=== PATIENT | male | born 1940 | race Caucasian/White ===

== ENCOUNTER 2020-08-17 11:33 | Inpatient (IN) ==
[2020-08-17] MEDS ORDERED: DEXTROSE 50% 25 GM/50 ML VIAL IV PRN (12:36)
[2020-08-17] MEDS ORDERED: GLUCAGON 1 MG VIAL IM PRN (12:36)
[2020-08-17] MEDS ORDERED: SODIUM CHLORIDE 0.9% 1,000 ML IV SCH (13:00)
[2020-08-17] MEDS ORDERED: HEPARIN DRIP 25,000 UNITS/500 ML PREMIX IV SCH (15:30)
[2020-08-17 15:40] LABS: Basophils # 0.1 10*3/uL (0.0-0.2); Basophils % 0.6 % (0.0-0.8); Eosinophils # 0.2 10*3/uL (0.0-0.87); Hematocrit 35.6 VOL% (42.0-52.0); Immature Granulocytes % 0.5 %; Immature Granulocytes Absolute 0.04 #; Lymphocytes # 1.8 10*3/uL (1.4-4.0); Lymphocytes % 21.5 % (21.2-54.2); Mean Corpuscular HGB Conc 33.7 GM/DL (32-36); Mean Corpuscular Volume 90.8 FL (87-102); Mean Platelet Volume 9.6 FL (9.6-12.0); Monocytes % 8.7 % (1.7-12.7); Neutrophils % 66.7 % (38.7-73.9); Platelet Count 312 T/CUMM (130-400); Red Blood Count 3.92 MC/CUMM (3.8-5.5); Red Cell Distribution Width 12.7 % (9.3-17.3); White Blood Count 8.4 T/CUMM (4-12)
[2020-08-17 16:15] LABS: Bilirubin,Total 0.6 MG/DL (0.2-1.0); Calcium 8.6 MG/DL (8.5-10.1); Osmolality,Calculated 267.5 MOS/KG (273-304); Total Protein 6.8 G/DL (6.4-8.3)
[2020-08-17] MEDS: CHLORHEXIDINE 4% SOLN 118 ML BOTTLE TOP SCH ×2 (17:54→21:56)
[2020-08-17 18:07] LABS: ABG Base Excess 0.5 MMOL/L (-2.5-2.5); ABG HCO3 24.8 MMOL/L (20-26); ABG Oxygen Saturation 95.4 % (95-100); ABG PCO2 37.4 MM HG (35-48); ABG PH 7.426 (7.35-7.45); ABG PO2 75.6 MM HG (80-95); ABG TCO2 21.7 MMOL/L (23-27); Allen Test Positive; Pt O2 Delivery Device Room Air
[2020-08-17] MEDS ORDERED: DIAZEPAM 5 MG TABLET PO ONE (20:30)
[2020-08-17] MEDS ORDERED: PANTOPRAZOLE 40 MG TABLET PO ONE (20:30)
[2020-08-17] MEDS: CHLORHEXIDINE 0.12% ORAL RINSE 60 ML BOTTLE SWISH/SPIT SCH (21:55)
[2020-08-17] MEDS: METOPROLOL TARTRATE 25 MG TABLET PO SCH (21:55)
[2020-08-18] MEDS ORDERED: PAPAVERINE 60 MG/2 ML VIAL ONE (04:22)
[2020-08-18] MEDS ORDERED: VANCOMYCIN 1,000 MG VIAL ONE (04:23)
[2020-08-18] MEDS: CHLORHEXIDINE 4% SOLN 118 ML BOTTLE TOP SCH ×2 (04:30→09:10)
[2020-08-18] MEDS ORDERED: DIAZEPAM 5 MG TABLET ONE (05:41)
[2020-08-18] MEDS ORDERED: PANTOPRAZOLE 40 MG VIAL IV ONE (05:42)
[2020-08-18] MEDS ORDERED: PANTOPRAZOLE 40 MG TABLET PO ONE (05:48)
[2020-08-18] MEDS ORDERED: SUFentanil 250 MCG/5 ML AMP ONE (05:54)
[2020-08-18] MEDS ORDERED: MIDAZOLAM 10 MG/2 ML VIAL ONE (05:55)
[2020-08-18] MEDS ORDERED: CEFUROXIME INJ 1,500 MG in SODIUM CHLORIDE 0.9% 100 ML IV ONE (06:30)
[2020-08-18 07:41] LABS: ABG Base Excess 0.9 MMOL/L (-2.5-2.5); ABG HCO3 25.2 MMOL/L (20-26); ABG PCO2 35.7 MM HG (35-48); ABG PH 7.445 (7.35-7.45); ABG TCO2 21.9 MMOL/L (23-27); Glucose Heart Surgery 107 MG/DL (74-106); Hematocrit Heart Surgery 34.6 PERCENT (42-52); Hemoglobin Heart Surgery 11.2 G/DL (14.0-18.0); Ionized Calcium Arterial 1.19 MMOL/L (1.21-1.46); PCO2 Patient Temp Arterial 35.7 MMHG; PH Patient Temp Arterial 7.445; Patient Temperature 37 CELCIUS; Sodium Heart/CVR 132 MMOL/L (135-145)
[2020-08-18] MEDS ORDERED: NITROPRUSSIDE 50 MG/2 ML VIAL ONE (07:54)
[2020-08-18] MEDS ORDERED: SODIUM BICARBONATE 50 MEQ/50 ML VIAL IV ONE ×2 (07:54→10:19)
[2020-08-18] MEDS ORDERED: PHENYLEPHRINE DRIP 40 MG/250 ML PREMIX IV ONE (07:55)
[2020-08-18] MEDS ORDERED: POTASSIUM CHLORIDE RIDER 100 ML IV ONE (07:55)
[2020-08-18] MEDS ORDERED: CALCIUM CHLORIDE 1,000 MG/10 ML SYRINGE IV ONE (07:55)
[2020-08-18] MEDS ORDERED: ALBUMIN 5% 12.5 GM/250 ML VIAL IV ONE ×2 (07:56→07:57)
[2020-08-18 08:09] LABS: Bilirubin,Urine Negative (Negative); Blood, Urine Negative (Negative); Glucose,Urine (UA) Negative (Negative); Hyaline Casts,Urine 1 /LPF (0-3); Ketones,Urine Negative (Negative); Nitrite,Urine Negative (Negative); Protein,Urine Negative; RBC,Urine 2 /HPF (0-4); Urine Appearance CLEAR (Clear); Urine Color Yellow (Yellow); Urine Specific Gravity 1.013 (1.001-1.035); Urine Urobilinogen < 2.0 EU/DL (0.2-1.0); WBC,Urine 1 /HPF (0-6)
[2020-08-18] MEDS ORDERED: NITROGLYCERIN DRIP 50 MG/250 ML BOTTLE IV ONE (08:52)
[2020-08-18] MEDS ORDERED: HEPARIN/NACL 0.9% 2 UNITS/ML 500 ML IV ONE (08:52)
[2020-08-18 08:53] LABS: Hematocrit Heart Surgery 21.7 PERCENT (42-52); Hemoglobin Heart Surgery 6.9 G/DL (14.0-18.0); PCO2 Patient Temp Venous 32.1 MM HG; PH Patient Temp Venous 7.483; PO2 Patient Temp Venous 34.6 MM HG; Potassium Heart/CVR 4.7 MMOL/L (3.5-5.1); VBG Base Excess 0.9 MEQ/L (0-4); VBG Oxygen Saturation 74.7 %; VBG PCO2 35.3 MMHG (41-51); VBG PH 7.453; VBG PO2 39.8 MMHG (17-40)
[2020-08-18] MEDS: METOPROLOL TARTRATE 25 MG TABLET PO SCH (09:10)
[2020-08-18] MEDS: CHLORHEXIDINE 0.12% ORAL RINSE 60 ML BOTTLE SWISH/SPIT SCH ×2 (09:10→21:00)
[2020-08-18 09:24] LABS: Hematocrit Heart Surgery 24.4 PERCENT (42-52); Hemoglobin Heart Surgery 7.8 G/DL (14.0-18.0); PCO2 Patient Temp Venous 27.7 MM HG; PH Patient Temp Venous 7.527; PO2 Patient Temp Venous 38.6 MM HG; Potassium Heart/CVR 4.4 MMOL/L (3.5-5.1); VBG Base Excess 0.8 MEQ/L (0-4); VBG Oxygen Saturation 85.1 %; VBG PCO2 32.1 MMHG (41-51); VBG PH 7.481; VBG PO2 47.5 MMHG (17-40)
[2020-08-18 09:53] LABS: Hematocrit Heart Surgery 25.7 PERCENT (42-52); Hemoglobin Heart Surgery 8.3 G/DL (14.0-18.0); PCO2 Patient Temp Venous 30.8 MM HG; PH Patient Temp Venous 7.493; PO2 Patient Temp Venous 43.4 MM HG; Potassium Heart/CVR 4.5 MMOL/L (3.5-5.1); VBG Base Excess 0.8 MEQ/L (0-4); VBG HCO3 24.9 MEQ/L (24-28); VBG Oxygen Saturation 81.7 %; VBG PCO2 30.8 MMHG (41-51); VBG PH 7.493; VBG PO2 43.4 MMHG (17-40)
[2020-08-18] MEDS ORDERED: MANNITOL 100 GM/500 ML BAG IV ONE (10:18)
[2020-08-18] MEDS ORDERED: ALBUMIN 25% 25 GM/100 ML VIAL IV ONE (10:19)
[2020-08-18] MEDS ORDERED: PROTAMINE SULFATE 50 MG/5 ML VIAL IV ONE (10:19)
[2020-08-18] MEDS ORDERED: LIDOCAINE 2% 5 ML VIAL ONE ×2 (10:19→11:44)
[2020-08-18] MEDS ORDERED: PROTAMINE SULFATE 250 MG/25 ML VIAL IV ONE (10:19)
[2020-08-18] MEDS ORDERED: methylPREDNISolone SOD SUC 1,000 MG/8 ML VIAL ONE (10:19)
[2020-08-18] MEDS ORDERED: DEXTROSE 5% KCL 20 MEQ 20 MEQ/1,000 ML BAG IV ONE (10:19)
[2020-08-18] MEDS ORDERED: FUROSEMIDE 20 MG/2 ML VIAL ONE (10:19)
[2020-08-18] MEDS ORDERED: MAGNESIUM SULFATE 5 GM/10 ML VIAL IV ONE (10:19)
[2020-08-18] MEDS ORDERED: HEPARIN 10,000 UNIT/10 ML VIAL ONE (10:19)
[2020-08-18 10:29] LABS: ABG Base Excess 0.8 MMOL/L (-2.5-2.5); ABG HCO3 25.2 MMOL/L (20-26); ABG PCO2 25.6 MM HG (35-48); ABG TCO2 20.6 MMOL/L (23-27); Glucose Heart Surgery 200 MG/DL (74-106); Hematocrit Heart Surgery 27.9 PERCENT (42-52); Ionized Calcium Arterial 1.21 MMOL/L (1.21-1.46); PCO2 Patient Temp Arterial 25.6 MMHG; Patient Temperature 37 CELCIUS; Potassium Heart/CVR 3.9 MMOL/L (3.5-5.1); Sodium Heart/CVR 126 MMOL/L (135-145)
[2020-08-18] MEDS: LACTATED RINGERS 1,000 ML IV PRN ×2 (11:30→14:40)
[2020-08-18] MEDS ORDERED: CHLORHEXIDINE 4% SOLN 118 ML BOTTLE TOP PRN (11:36)
[2020-08-18] MEDS ORDERED: MAGNESIUM SULF RIDER 4 GM in PREMIX 1 EACH IV PRN (11:36)
[2020-08-18] MEDS ORDERED: VECURONIUM 10 MG VIAL IV PRN ×2 (11:36)
[2020-08-18] MEDS ORDERED: ONDANSETRON 4 MG/2 ML VIAL IV PRN (11:36)
[2020-08-18] MEDS ORDERED: INSULIN REGULAR 100 UNIT/ML IV PRN (11:36)
[2020-08-18] MEDS ORDERED: MIDAZOLAM 10 MG/2 ML VIAL IV PRN (11:36)
[2020-08-18] MEDS ORDERED: INSULIN REGULAR 100 UNIT/ML IV ONE (11:36)
[2020-08-18] MEDS ORDERED: CALCIUM CHLORIDE 1,000 MG/10 ML SYRINGE IV PRN (11:36)
[2020-08-18] MEDS ORDERED: MORPHINE 10 MG/1 ML VIAL IV PRN (11:36)
[2020-08-18] MEDS ORDERED: MAGNESIUM SULF RIDER 2 GM in PREMIX 1 EACH IV PRN (11:36)
[2020-08-18] MEDS ORDERED: DEXTROSE 50% 25 GM/50 ML VIAL IV PRN ×2 (11:36)
[2020-08-18] MEDS ORDERED: PHENYLEPHRINE DRIP 40 MG/250 ML PREMIX IV PRN (11:36)
[2020-08-18] MEDS ORDERED: MORPHINE 4 MG/1 ML VIAL IV PRN (11:36)
[2020-08-18] MEDS ORDERED: ACETAMINOPHEN 650 MG SUPP RECTAL PRN (11:36)
[2020-08-18] MEDS ORDERED: NITROPRUSSIDE 100 MG in DEXTROSE 5% 250 ML IV PRN (11:36)
[2020-08-18] MEDS ORDERED: MIDAZOLAM 2 MG/2 ML VIAL IV PRN (11:36)
[2020-08-18] MEDS ORDERED: LACTATED RINGERS 250 ML IV PRN (11:36)
[2020-08-18] MEDS ORDERED: SODIUM CHLORIDE 0.45% 1,000 ML IV SCH ×2 (11:36)
[2020-08-18] MEDS ORDERED: INSULIN REGULAR DRIP 100 ML IV SCH (11:36)
[2020-08-18] MEDS ORDERED: CALCIUM CHLORIDE 1,000 MG/10 ML VIAL IV ONE (11:44)
[2020-08-18] MEDS ORDERED: SEVOFLURANE 1 UNIT/15 MINUTE INH ONE (11:44)
[2020-08-18] MEDS ORDERED: PHENYLEPHRINE 10 MG/1 ML VIAL IV ONE (11:45)
[2020-08-18] MEDS ORDERED: SODIUM CHLORIDE 0.9% 300 ML IV ONE (11:45)
[2020-08-18] MEDS ORDERED: SODIUM CHLORIDE 0.9% 500 ML IV ONE (11:45)
[2020-08-18] MEDS ORDERED: SODIUM CHLORIDE 0.9% 1,000 ML IV ONE (11:45)
[2020-08-18] MEDS ORDERED: GLYCOPYRROLATE 0.4 MG/2 ML VIAL ONE (11:45)
[2020-08-18] MEDS ORDERED: ETOMIDATE 40 MG/20 ML VIAL IV ONE (11:45)
[2020-08-18] MEDS ORDERED: AMINOCAPROIC ACID 5,000 MG/20 ML VIAL ONE (11:45)
[2020-08-18] MEDS ORDERED: ESMOLOL 100 MG/10 ML VIAL IV ONE (11:45)
[2020-08-18 11:51] LABS: ABG Base Excess 0.8 MMOL/L (-2.5-2.5); ABG HCO3 25.1 MMOL/L (20-26); ABG PCO2 31.4 MM HG (35-48); ABG PH 7.485 (7.35-7.45); ABG TCO2 21.3 MMOL/L (23-27); Glucose Heart Surgery 170 MG/DL (74-106); Hematocrit Heart Surgery 31.4 PERCENT (42-52); Hemoglobin Heart Surgery 10.2 G/DL (14.0-18.0); Potassium Heart/CVR 3.5 MMOL/L (3.5-5.1)
[2020-08-18 11:55] LABS: Basophils % 0.3 % (0.0-0.8); Eosinophils % 0.4 % (0.00-10.9); Hematocrit 28.6 VOL% (42.0-52.0); Hemoglobin 10.1 GM/DL (14.0-18.0); Immature Granulocytes % 1.2 %; Immature Granulocytes Absolute 0.13 #; Lymphocytes # 0.5 10*3/uL (1.4-4.0); Lymphocytes % 4.8 % (21.2-54.2); Mean Corpuscular HGB Conc 35.3 GM/DL (32-36); Mean Corpuscular Volume 88.3 FL (87-102); Mean Platelet Volume 9.8 FL (9.6-12.0); Monocytes % 5.2 % (1.7-12.7); Neutrophils % 88.1 % (38.7-73.9); Platelet Count 251 T/CUMM (130-400); Red Blood Count 3.24 MC/CUMM (3.8-5.5); Red Cell Distribution Width 12.4 % (9.3-17.3); White Blood Count 11.2 T/CUMM (4-12)
[2020-08-18 12:06] LABS: INR 1.2; PT Patient Result 12.5 SECS (9.8-11.9); Partial Thromboplastin Time 33.9 SECS (23.9-33.8)
[2020-08-18] MEDS: POTASSIUM CHLORIDE RIDER 20 MEQ in PREMIX 1 EACH IV PRN ×3 (12:06→21:52)
[2020-08-18 12:18] LABS: Albumin 2.7 G/DL (3.4-5.0); Bilirubin,Total 1.1 MG/DL (0.2-1.0); Calcium 8.3 MG/DL (8.5-10.1); Osmolality,Calculated 271.4 MOS/KG (273-304); Total Protein 5.8 G/DL (6.4-8.3)
[2020-08-18] MEDS: ALBUMIN 5% 12.5 GM in PREMIX 1 EACH IV PRN ×3 (12:22→16:09)
[2020-08-18 12:32] LABS: CKMB % 6.9 %
[2020-08-18 12:37] LABS: Troponin I 3.76 NG/ML (0.00-0.045)
[2020-08-18] MEDS: POTASSIUM CHLORIDE RIDER 10 MEQ in PREMIX 1 EACH IV PRN ×3 (12:40→22:26)
[2020-08-18 13:25] LABS: ABG Base Excess 0.6 MMOL/L (-2.5-2.5); ABG Oxygen Saturation 99.9 % (95-100); ABG PH 7.476 (7.35-7.45); ABG TCO2 21.1 MMOL/L (23-27); Glucose Heart Surgery 159 MG/DL (74-106); Hematocrit Heart Surgery 32.9 PERCENT (42-52); Hemoglobin Heart Surgery 10.6 G/DL (14.0-18.0); Potassium Heart/CVR 4.1 MMOL/L (3.5-5.1)
[2020-08-18 13:59] LABS: Eosinophils 1 % (0-10); Lymphocytes 3 % (20-55); Segmented Neutrophils 91 % (50-85); Total Cells Counted 100
[2020-08-18 14:00] LABS: Platelet Estimate Adequate
[2020-08-18 15:56] LABS: ABG HCO3 24.5 MMOL/L (20-26); ABG Oxygen Saturation 99.8 % (95-100); ABG PCO2 33.5 MM HG (35-48); ABG PH 7.454 (7.35-7.45); ABG TCO2 21.2 MMOL/L (23-27); Glucose Heart Surgery 173 MG/DL (74-106); Hematocrit Heart Surgery 31.9 PERCENT (42-52); Hemoglobin Heart Surgery 10.3 G/DL (14.0-18.0); Potassium Heart/CVR 3.8 MMOL/L (3.5-5.1)
[2020-08-18] MEDS: INSULIN REGULAR 100 UNIT/ML SUBCUT PRN ×3 (16:49→23:47)
[2020-08-18] MEDS: CEFUROXIME INJ 1,500 MG in SYRINGE 1 EACH IV SCH (18:04)
[2020-08-18 18:43] LABS: ABG Base Excess -1.2 MMOL/L (-2.5-2.5); ABG HCO3 23.4 MMOL/L (20-26); ABG Oxygen Saturation 99.6 % (95-100); ABG PCO2 37.4 MM HG (35-48); ABG PH 7.401 (7.35-7.45); ABG TCO2 21.2 MMOL/L (23-27); Glucose Heart Surgery 198 MG/DL (74-106); Hemoglobin Heart Surgery 9.7 G/DL (14.0-18.0); Potassium Heart/CVR 4.3 MMOL/L (3.5-5.1)
[2020-08-18] MEDS: KETOROLAC 30 MG/1 ML VIAL IV SCH (19:23)
[2020-08-18 20:25] LABS: CKMB % 7.6 %
[2020-08-18 20:35] LABS: Troponin I 3.68 NG/ML (0.00-0.045)
[2020-08-18 21:49] LABS: ABG Base Excess -0.6 MMOL/L (-2.5-2.5); ABG Oxygen Saturation 98.9 % (95-100); ABG PCO2 38.5 MM HG (35-48); ABG PH 7.402 (7.35-7.45); ABG TCO2 21.9 MMOL/L (23-27); Glucose Heart Surgery 188 MG/DL (74-106); Hematocrit Heart Surgery 29.8 PERCENT (42-52); Hemoglobin Heart Surgery 9.6 G/DL (14.0-18.0); Potassium Heart/CVR 3.9 MMOL/L (3.5-5.1)
[2020-08-18] MEDS ORDERED: FUROSEMIDE 40 MG/4 ML VIAL IV ONE (21:57)
[2020-08-18 23:32] LABS: ABG Base Excess -0.3 MMOL/L (-2.5-2.5); ABG Oxygen Saturation 98.4 % (95-100); ABG PCO2 37.9 MM HG (35-48); ABG PO2 162.9 MM HG (80-95); ABG TCO2 25.2 MMOL/L (23-27); Glucose Heart Surgery 169 MG/DL (74-106); Hemoglobin Heart Surgery 10.5 G/DL (14.0-18.0); Potassium Heart/CVR 4.2 MMOL/L (3.5-5.1)
[2020-08-19] MEDS: KETOROLAC 30 MG/1 ML VIAL IV SCH (00:21)
[2020-08-19 02:49] LABS: ABG Base Excess -0.1 MMOL/L (-2.5-2.5); ABG HCO3 24.4 MMOL/L (20-26); ABG Oxygen Saturation 99.6 % (95-100); ABG PCO2 40.1 MM HG (35-48); ABG PH 7.397 (7.35-7.45); ABG TCO2 22.5 MMOL/L (23-27); Glucose Heart Surgery 164 MG/DL (74-106); Hematocrit Heart Surgery 30.7 PERCENT (42-52); Hemoglobin Heart Surgery 9.9 G/DL (14.0-18.0); Potassium Heart/CVR 4.2 MMOL/L (3.5-5.1)
[2020-08-19 04:28] LABS: Basophils % 0.2 % (0.0-0.8); Hematocrit 29.4 VOL% (42.0-52.0); Hemoglobin 9.9 GM/DL (14.0-18.0); Immature Granulocytes % 0.8 %; Immature Granulocytes Absolute 0.11 #; Lymphocytes # 0.6 10*3/uL (1.4-4.0); Lymphocytes % 4.8 % (21.2-54.2); Mean Corpuscular HGB Conc 33.7 GM/DL (32-36); Mean Corpuscular Volume 90.5 FL (87-102); Mean Platelet Volume 10.5 FL (9.6-12.0); Monocytes % 3.2 % (1.7-12.7); Platelet Count 304 T/CUMM (130-400); Red Blood Count 3.25 MC/CUMM (3.8-5.5); Red Cell Distribution Width 12.8 % (9.3-17.3); White Blood Count 13.1 T/CUMM (4-12)
[2020-08-19 04:31] LABS: Albumin 3.7 G/DL (3.4-5.0); Bilirubin,Direct 0.3 MG/DL (0.0-0.20); Bilirubin,Total 1.4 MG/DL (0.2-1.0); Calcium 8.9 MG/DL (8.5-10.1); Osmolality,Calculated 278.1 MOS/KG (273-304); Total Protein 6.4 G/DL (6.4-8.3)
[2020-08-19 04:34] LABS: CKMB % 11.1 %
[2020-08-19 04:40] LABS: ABG Base Excess -0.5 MMOL/L (-2.5-2.5); ABG Oxygen Saturation 99.4 % (95-100); ABG PCO2 39.4 MM HG (35-48); ABG PH 7.397 (7.35-7.45); Glucose Heart Surgery 157 MG/DL (74-106); Potassium Heart/CVR 3.9 MMOL/L (3.5-5.1)
[2020-08-19 04:40] LABS: Troponin I 6.76 NG/ML (0.00-0.045)
[2020-08-19] MEDS: POTASSIUM CHLORIDE RIDER 20 MEQ in PREMIX 1 EACH IV PRN (05:05)
[2020-08-19] MEDS: POTASSIUM CHLORIDE RIDER 10 MEQ in PREMIX 1 EACH IV PRN (05:39)
[2020-08-19] MEDS: CEFUROXIME INJ 1,500 MG in SYRINGE 1 EACH IV SCH (06:26)
[2020-08-19] MEDS ORDERED: GLUCAGON 1 MG VIAL IM PRN ×4 (09:08→09:41)
[2020-08-19] MEDS ORDERED: ALUMINUM/MAGNES/SIMETH MAX STR 30 ML UDCUP PO PRN ×2 (09:08→09:41)
[2020-08-19] MEDS ORDERED: ZALEPLON 5 MG CAPSULE PO PRN ×2 (09:08→09:41)
[2020-08-19] MEDS ORDERED: POTASSIUM CHLORIDE 20 MEQ TABLET PO PRN ×2 (09:08→09:41)
[2020-08-19] MEDS ORDERED: DEXTROSE 50% 25 GM/50 ML VIAL IV PRN ×4 (09:08→09:41)
[2020-08-19] MEDS ORDERED: ONDANSETRON 4 MG/2 ML VIAL IV PRN ×2 (09:08→09:41)
[2020-08-19] MEDS ORDERED: MAGNESIUM HYDROXIDE SUSP 30 ML UDCUP PO PRN ×2 (09:08→09:41)
[2020-08-19] MEDS ORDERED: MORPHINE 4 MG/1 ML VIAL IV PRN (09:08)
[2020-08-19] MEDS ORDERED: MAGNESIUM SULF RIDER 4 GM in PREMIX 1 EACH IV PRN ×2 (09:08→09:41)
[2020-08-19] MEDS ORDERED: MAGNESIUM SULF RIDER 2 GM in PREMIX 1 EACH IV PRN ×2 (09:08→09:41)
[2020-08-19] MEDS ORDERED: oxyCODONE/ACETAMINOPHEN 5-325 MG TABLET PO PRN ×2 (09:08→09:41)
[2020-08-19] MEDS ORDERED: ACETAMINOPHEN 325 MG TABLET PO PRN ×2 (09:08→09:41)
[2020-08-19] MEDS ORDERED: SODIUM CHLOR 0.45% KCL 20 MEQ 20 MEQ/1,000 ML BAG IV SCH ×2 (09:30→10:00)
[2020-08-19] MEDS: CHLORHEXIDINE 0.12% ORAL RINSE 60 ML BOTTLE SWISH/SPIT SCH ×2 (09:46→20:43)
[2020-08-19 10:21] LABS: Band Neutrophils 2 % (0-10); Hypochromasia Slight; Lymphocytes 4 % (20-55); Platelet Estimate Normal; Segmented Neutrophils 92 % (50-85); Total Cells Counted 100
[2020-08-19] MEDS: INSULIN REGULAR 100 UNIT/ML SUBCUT SCH ×3 (13:31→20:43)
[2020-08-19] MEDS ORDERED: CEFUROXIME INJ 1,500 MG in SYRINGE 1 EACH IV SCH (18:00)
[2020-08-19] MEDS ORDERED: CEFUROXIME INJ 1,500 MG in SODIUM CHLORIDE 0.9% 100 ML IV ONE (18:30)
[2020-08-19] MEDS ORDERED: CHLORHEXIDINE 0.12% ORAL RINSE 60 ML BOTTLE SWISH/SPIT SCH (21:00)
[2020-08-19] MEDS ORDERED: ATORVASTATIN 20 MG TABLET PO SCH (21:00)
[2020-08-20] MEDS ORDERED: DEXTROSE 5% LACTATED RINGERS 500 ML IV ONE (00:32)
[2020-08-20] MEDS ORDERED: AMIODARONE INJ 100 MG in DEXTROSE 5% 100 ML IV ONE (00:45)
[2020-08-20] MEDS: DEXTROSE 5% LACTATED RINGERS 1,000 ML IV SCH ×2 (02:13→15:35)
[2020-08-20] MEDS ORDERED: FUROSEMIDE 40 MG/4 ML VIAL IV ONE ×2 (06:00)
[2020-08-20 07:48] LABS: Basophils % 0.1 % (0.0-0.8); Eosinophils % 0.1 % (0.00-10.9); Hemoglobin 9.1 GM/DL (14.0-18.0); Immature Granulocytes % 0.4 %; Immature Granulocytes Absolute 0.05 #; Lymphocytes # 1.7 10*3/uL (1.4-4.0); Mean Corpuscular HGB Conc 33.7 GM/DL (32-36); Mean Corpuscular Volume 92.2 FL (87-102); Mean Platelet Volume 10.9 FL (9.6-12.0); Monocytes % 6.9 % (1.7-12.7); Neutrophils % 80.5 % (38.7-73.9); Platelet Count 256 T/CUMM (130-400); Red Blood Count 2.93 MC/CUMM (3.8-5.5); Red Cell Distribution Width 13.1 % (9.3-17.3); White Blood Count 13.9 T/CUMM (4-12)
[2020-08-20 07:59] LABS: Albumin 2.8 G/DL (3.4-5.0); Bilirubin,Total 0.4 MG/DL (0.2-1.0); Calcium 8.5 MG/DL (8.5-10.1); Osmolality,Calculated 276.2 MOS/KG (273-304); Total Protein 5.8 G/DL (6.4-8.3)
[2020-08-20] MEDS: INSULIN REGULAR 100 UNIT/ML SUBCUT SCH ×4 (08:20→22:01)
[2020-08-20] MEDS ORDERED: NON-FORMULARY MEDICATION (Losartan 100 mg Tablet) PO SCH (09:00)
[2020-08-20] MEDS ORDERED: PANTOPRAZOLE 40 MG TABLET PO SCH ×2 (09:00)
[2020-08-20] MEDS ORDERED: ASPIRIN EC 81 MG TABLET PO SCH (09:00)
[2020-08-20] MEDS ORDERED: AMIODARONE 200 MG TABLET PO SCH (09:00)
[2020-08-20] MEDS ORDERED: FERROUS SULFATE 325 MG TABLET PO SCH (09:00)
[2020-08-20] MEDS ORDERED: hydroCHLOROthiazide 25 MG TABLET PO SCH (09:00)
[2020-08-20] MEDS ORDERED: DOCUSATE SODIUM 100 MG CAPSULE PO SCH (09:00)
[2020-08-20] MEDS: DOCUSATE SODIUM 100 MG CAPSULE PO SCH (09:17)
[2020-08-20] MEDS: FERROUS SULFATE 325 MG TABLET PO SCH (09:17)
[2020-08-20] MEDS: ASPIRIN EC 325 MG TABLET PO SCH (09:17)
[2020-08-20] MEDS: METOPROLOL TARTRATE 25 MG TABLET PO SCH (09:18)
[2020-08-20] MEDS: CHLORHEXIDINE 0.12% ORAL RINSE 60 ML BOTTLE SWISH/SPIT SCH ×2 (09:23→21:54)
[2020-08-20] MEDS: PANTOPRAZOLE 40 MG TABLET PO SCH (09:42)
[2020-08-20] MEDS ORDERED: ATORVASTATIN 40 MG TABLET PO SCH (21:00)
[2020-08-20] MEDS: ATORVASTATIN 20 MG TABLET PO SCH (21:54)
[2020-08-20] MEDS: ASCORBIC ACID 500 MG TABLET PO SCH (21:54)
[2020-08-21 06:34] LABS: Basophils % 0.1 % (0.0-0.8); Eosinophils # 0.1 10*3/uL (0.0-0.87); Eosinophils % 0.6 % (0.00-10.9); Hematocrit 25.7 VOL% (42.0-52.0); Hemoglobin 8.7 GM/DL (14.0-18.0); Immature Granulocytes % 0.9 %; Immature Granulocytes Absolute 0.08 #; Lymphocytes # 1.4 10*3/uL (1.4-4.0); Lymphocytes % 15.6 % (21.2-54.2); Mean Corpuscular HGB Conc 33.9 GM/DL (32-36); Mean Corpuscular Volume 92.1 FL (87-102); Mean Platelet Volume 10.9 FL (9.6-12.0); Monocytes % 7.9 % (1.7-12.7); Neutrophils % 74.9 % (38.7-73.9); Platelet Count 261 T/CUMM (130-400); Red Blood Count 2.79 MC/CUMM (3.8-5.5); White Blood Count 9.3 T/CUMM (4-12)
[2020-08-21 06:48] LABS: Calcium 8.4 MG/DL (8.5-10.1); Osmolality,Calculated 276.1 MOS/KG (273-304)
[2020-08-21] MEDS: ASPIRIN EC 325 MG TABLET PO SCH (08:49)
[2020-08-21] MEDS: PANTOPRAZOLE 40 MG TABLET PO SCH (08:49)
[2020-08-21] MEDS: ASCORBIC ACID 500 MG TABLET PO SCH ×2 (08:49→21:28)
[2020-08-21] MEDS: DOCUSATE SODIUM 100 MG CAPSULE PO SCH (08:49)
[2020-08-21] MEDS: METOPROLOL TARTRATE 25 MG TABLET PO SCH (08:50)
[2020-08-21] MEDS: FERROUS SULFATE 325 MG TABLET PO SCH (08:50)
[2020-08-21] MEDS: INSULIN REGULAR 100 UNIT/ML SUBCUT SCH ×4 (08:52→21:28)
[2020-08-21] MEDS: CHLORHEXIDINE 0.12% ORAL RINSE 60 ML BOTTLE SWISH/SPIT SCH ×2 (09:05→21:28)
[2020-08-21] MEDS: DEXTROSE 5% LACTATED RINGERS 1,000 ML IV SCH (11:10)
[2020-08-21] MEDS: ATORVASTATIN 20 MG TABLET PO SCH (21:28)
[2020-08-22 05:45] LABS: Basophils % 0.3 % (0.0-0.8); Eosinophils # 0.2 10*3/uL (0.0-0.87); Hemoglobin 9.1 GM/DL (14.0-18.0); Immature Granulocytes % 0.9 %; Immature Granulocytes Absolute 0.07 #; Lymphocytes # 1.5 10*3/uL (1.4-4.0); Lymphocytes % 19.9 % (21.2-54.2); Mean Corpuscular HGB Conc 33.7 GM/DL (32-36); Mean Corpuscular Volume 92.2 FL (87-102); Mean Platelet Volume 10.8 FL (9.6-12.0); Monocytes % 8.1 % (1.7-12.7); Neutrophils % 67.8 % (38.7-73.9); Platelet Count 277 T/CUMM (130-400); Red Blood Count 2.93 MC/CUMM (3.8-5.5); Red Cell Distribution Width 12.8 % (9.3-17.3); White Blood Count 7.4 T/CUMM (4-12)
[2020-08-22 06:01] LABS: Calcium 8.5 MG/DL (8.5-10.1); Osmolality,Calculated 273.1 MOS/KG (273-304)
[2020-08-22] MEDS: ASPIRIN EC 325 MG TABLET PO SCH (09:44)
[2020-08-22] MEDS: hydroCHLOROthiazide 25 MG TABLET PO SCH (09:44)
[2020-08-22] MEDS: DOCUSATE SODIUM 100 MG CAPSULE PO SCH (09:44)
[2020-08-22] MEDS: PANTOPRAZOLE 40 MG TABLET PO SCH (09:44)
[2020-08-22] MEDS: AMIODARONE 200 MG TABLET PO SCH ×2 (09:45→21:17)
[2020-08-22] MEDS: FERROUS SULFATE 325 MG TABLET PO SCH (09:45)
[2020-08-22] MEDS: METOPROLOL TARTRATE 25 MG TABLET PO SCH ×2 (09:45→21:17)
[2020-08-22] MEDS: ASCORBIC ACID 500 MG TABLET PO SCH ×2 (09:45→21:17)
[2020-08-22] MEDS: CHLORHEXIDINE 0.12% ORAL RINSE 60 ML BOTTLE SWISH/SPIT SCH ×2 (09:46→21:18)
[2020-08-22] MEDS: INSULIN REGULAR 100 UNIT/ML SUBCUT SCH ×4 (09:52→21:18)
[2020-08-22] MEDS: ATORVASTATIN 20 MG TABLET PO SCH (21:18)
[2020-08-23 06:05] LABS: Basophils % 0.5 % (0.0-0.8); Eosinophils # 0.3 10*3/uL (0.0-0.87); Eosinophils % 4.4 % (0.00-10.9); Hematocrit 27.2 VOL% (42.0-52.0); Hemoglobin 9.2 GM/DL (14.0-18.0); Immature Granulocytes % 0.8 %; Immature Granulocytes Absolute 0.06 #; Lymphocytes % 26.4 % (21.2-54.2); Mean Corpuscular HGB Conc 33.8 GM/DL (32-36); Mean Corpuscular Volume 91.9 FL (87-102); Mean Platelet Volume 10.2 FL (9.6-12.0); Monocytes % 9.7 % (1.7-12.7); Neutrophils % 58.2 % (38.7-73.9); Platelet Count 333 T/CUMM (130-400); Red Blood Count 2.96 MC/CUMM (3.8-5.5); Red Cell Distribution Width 12.7 % (9.3-17.3); White Blood Count 7.5 T/CUMM (4-12)
[2020-08-23 06:37] LABS: Calcium 8.5 MG/DL (8.5-10.1); Osmolality,Calculated 273.1 MOS/KG (273-304)
[2020-08-23] MEDS: CHLORHEXIDINE 0.12% ORAL RINSE 60 ML BOTTLE SWISH/SPIT SCH (08:25)
[2020-08-23] MEDS: ASCORBIC ACID 500 MG TABLET PO SCH (08:26)
[2020-08-23] MEDS: AMIODARONE 200 MG TABLET PO SCH (08:26)
[2020-08-23] MEDS: hydroCHLOROthiazide 25 MG TABLET PO SCH (08:26)
[2020-08-23] MEDS: METOPROLOL TARTRATE 25 MG TABLET PO SCH (08:27)
[2020-08-23] MEDS: DOCUSATE SODIUM 100 MG CAPSULE PO SCH (08:27)
[2020-08-23] MEDS: FERROUS SULFATE 325 MG TABLET PO SCH (08:27)
[2020-08-23] MEDS: PANTOPRAZOLE 40 MG TABLET PO SCH (08:27)
[2020-08-23] MEDS ORDERED: ASPIRIN EC 81 MG TABLET PO SCH (09:00)
[2020-08-23] MEDS ORDERED: APIXABAN 5 MG TABLET PO SCH (09:00)
[2020-08-23] MEDS: INSULIN REGULAR 100 UNIT/ML SUBCUT SCH ×2 (09:02→12:48)
[2020-08-23 13:02] VITALS: BP 109/67
== END 2020-08-23 13:04 | disposition home health service (06) | DRG 236 ==
LOC: N.ICU 14:47 → N.CVR 08-18 07:49 → N.TELES 08-19 09:39